=== PATIENT | female | born 1945 | race Caucasian/White ===

== ENCOUNTER 2016-02-26 17:10 | Inpatient (IN) | payer OTHER ==
[~2016-02-26] VITALS: Ht 177.8 cm; Wt 81.2 kg
[~2016-02-26 17:10] MED LIST: CRESTOR5 MG PO; PAXIL20 MG PO; PREVACID30 MG PO; QUETIAPINE FUMA50 MG PO; SINEMET 25-1001 EACH PO; TRAMADOL HCL50 MG PO
[2016-02-26 18:08] LABS: EOSINOPHIL (%) 0 % (0-5); HEMATOCRIT 33.7 % (36.0-46.0); IMMATURE GRANULOCYTE (%) 0.1 % (0.0-0.7); IMMATURE GRANULOCYTE COUNT 0.1 K/uL; LYMPHOCYTE COUNT 0.6 K/uL (1.0-2.8); MCH 30.5 PG (29.0-34.0); MCHC 34.4 G/DL (30.0-36.0); MCV 88.7 FL (83-99); MONOCYTE COUNT 0.4 K/uL (0-0.8); NEUTROPHIL (%) 90.8 % (45-76); NEUTROPHIL COUNT 9.8 K/uL (1.8-6.4); PLATELET COUNT 120 K/uL (156-360); RBC DIS.WIDTH-CV 12.2 % (11.8-14.6); RBC DIS.WIDTH-SD 38.5 % (39-53); WHITE BLOOD COUNT 10.7 K/uL (4.1-10.2)
[2016-02-26 18:23] LABS: CHLORIDE 98 mEq/L (99-109); POTASSIUM 3.8 mEq/L (3.7-5.4); SODIUM 134 mEq/L (136-147)
[2016-02-26 18:25] LABS: GLUCOSE 231 mg/dL (70-99)
[2016-02-26 18:27] LABS: ANION GAP 17 MEQ/L (2-14); TOTAL BILIRUBIN 0.3 mg/dL (0.0-1.0)
[2016-02-26 18:28] LABS: ALKALINE PHOSPHATASE 80 IU/L (3-129)
[2016-02-26 18:29] LABS: GFR ESTIMATE (CALCULATED) 31 mL/min/
[2016-02-26 18:30] LABS: UREA NITROGEN (BUN) 29 mg/dL (9-23)
[2016-02-26 18:31] LABS: TROP-I INTERPRETATION NEGATIVE; TROPONIN-I < 0.01 ng/mL (0.0-0.30)
[2016-02-26 18:33] LABS: D-DIMER ELISA 0.21 mg/L FEU (< 0.57)
[2016-02-26] MEDS ORDERED: TUDORZA PRESS400 MCG IH (20:15)
[2016-02-26] MEDS ORDERED: COQ-10100 MG PO (20:16)
[2016-02-26] MEDS ORDERED: VITAMIN B12 100MCG PO (20:16)
[2016-02-26] MEDS ORDERED: VITAMIN D22000 UNIT PO (20:16)
[2016-02-26] MEDS ORDERED: CRANBERRY500 MG PO (20:17)
[2016-02-26] MEDS ORDERED: OCUVITE TABLET1 EACH PO (20:17)
[2016-02-26] MEDS ORDERED: PREDNISONE20 MG PO (20:18)
[2016-02-26] MEDS ORDERED: VIBRAMYCIN100 MG PO (20:19)
[2016-02-26] MEDS ORDERED: TESSALON200 MG PO (20:20)
[2016-02-26] MEDS ORDERED: NORFLEX100 MG PO (20:20)
[2016-02-26] MEDS ORDERED: PROAIR HFA8.5 GM IH (20:20)
[2016-02-26] MEDS ORDERED: TYLENOL EXTRA500 MG PO (20:21)
[2016-02-26 20:26] LABS: INFLUENZA A VIRAL ANTIGEN NEGATIVE; INFLUENZA B VIRAL ANTIGEN NEGATIVE
[2016-02-26 23:42] LABS: INTER. NORMALIZED RATIO 1.2; PROTHROMBIN TIME 12.1 (9.2-11.2); PTT 59.8 (25-32)
[2016-02-27] VITALS (9 sets, daily range): BP systolic 158–200; BP diastolic 82–110
[2016-02-27 01:03] LABS: TROP-I INTERPRETATION NEGATIVE; TROPONIN-I 0.03 ng/mL (0.0-0.30)
[2016-02-27 06:42] LABS: MCH 31.1 PG (29.0-34.0); MCHC 34.8 G/DL (30.0-36.0); MCV 89.2 FL (83-99); MEAN PLAT.VOLUME 10.2 uM^3 (9.5-12.4); PLATELET COUNT 131 K/uL (156-360); RBC DIS.WIDTH-CV 12.2 % (11.8-14.6); RBC DIS.WIDTH-SD 38.8 % (39-53); WHITE BLOOD COUNT 13.1 K/uL (4.1-10.2)
[2016-02-27 06:53] LABS: TROP-I INTERPRETATION NEGATIVE; TROPONIN-I 0.02 ng/mL (0.0-0.30)
[2016-02-27 09:51] LABS: ANION GAP 11 MEQ/L (2-14); CHLORIDE 100 MEQ/L (99-109); GFR ESTIMATE (CALCULATED) 39 mL/min/; GLUCOSE 128 mg/dL (70-99); SAMPLE HEMOLYSIS CHECK 0; SAMPLE ICTERIC CHECK 0; SAMPLE LIPEMIA CHECK 0; SODIUM 134 MEQ/L (136-147); UREA NITROGEN (BUN) 24 mg/dL (9-23)
[2016-02-27 10:06] LABS: POTASSIUM 4.8 MEQ/L (3.7-5.4)
[2016-02-28 03:18] LABS: EOSINOPHIL (%) 0 % (0-5); HEMATOCRIT 30.3 % (36.0-46.0); IMMATURE GRANULOCYTE (%) 0.3 % (0.0-0.7); IMMATURE GRANULOCYTE COUNT 0.3 K/uL; LYMPHOCYTE COUNT 0.9 K/uL (1.0-2.8); MCH 31.1 PG (29.0-34.0); MCHC 34.7 G/DL (30.0-36.0); MCV 89.6 FL (83-99); MEAN PLAT.VOLUME 9.7 uM^3 (9.5-12.4); MONOCYTE (%) 7.2 % (3-12); MONOCYTE COUNT 0.7 K/uL (0-0.8); NEUTROPHIL (%) 82.8 % (45-76); NEUTROPHIL COUNT 7.7 K/uL (1.8-6.4); PLATELET COUNT 133 K/uL (156-360); RBC DIS.WIDTH-SD 38.1 % (39-53); RED BLOOD COUNT 3.38 M/uL (3.80-5.20); WHITE BLOOD COUNT 9.3 K/uL (4.1-10.2)
[2016-02-28 03:32] LABS: CHLORIDE 103 mEq/L (99-109); POTASSIUM 4.1 mEq/L (3.7-5.4); SODIUM 134 mEq/L (136-147)
[2016-02-28 03:35] LABS: GLUCOSE 152 mg/dL (70-99)
[2016-02-28 03:36] LABS: ANION GAP 11 MEQ/L (2-14); TOTAL BILIRUBIN 0.3 mg/dL (0.0-1.0)
[2016-02-28 03:38] LABS: ALKALINE PHOSPHATASE 71 IU/L (3-129); GFR ESTIMATE (CALCULATED) 43 mL/min/
[2016-02-28 03:39] LABS: UREA NITROGEN (BUN) 26 mg/dL (9-23)
[2016-02-28 07:30] VITALS: BP 177/95
[2016-02-28 12:00] VITALS: BP 180/92
[2016-02-28 15:30] VITALS: BP 168/84
[2016-02-28 19:10] VITALS: BP 165/82
[2016-02-28 22:52] VITALS: BP 170/80
[2016-02-29 04:09] VITALS: BP 150/72
[2016-02-29] MEDS ORDERED: ELIQUIS5 MG PO (09:45)
[2016-02-29 09:46] VITALS: BP 132/70
[2016-02-29] MEDS ORDERED: ASPIRIN EC325 MG PO (09:46)
[2016-02-29] MEDS ORDERED: LISINOPRIL10 MG PO (09:46)
[2016-02-29] MEDS ORDERED: PREDNISONE20 MG PO (09:47)
[2016-02-29] MEDS ORDERED: LOPRESSOR25 MG PO (09:51)
[2016-02-29 11:30] VITALS: BP 148/88
== END 2016-02-29 11:54 | disposition home or self-care (01) | DRG 871 ==
LOC: EME 17:10 → 4EAST 21:22 → EDOF 21:22 → 4EAST 02-27 00:02
PROVIDERS: Emergency Medicine; Hospitalist; Nurse Practitioner Adult Health
DX: A41.9 Sepsis, unspecified organism (principal); R65.20 Severe sepsis without septic shock; J44.0 Chronic obstructive pulmonary disease with (acute) lower respiratory infection; J18.9 Pneumonia, unspecified organism; J20.9 Acute bronchitis, unspecified; I12.9 Hypertensive chronic kidney disease with stage 1 through stage 4 chronic kidney disease, or unspecified chronic kidney disease; N18.3 Chronic kidney disease, stage 3 (moderate); N25.81 Secondary hyperparathyroidism of renal origin; D69.6 Thrombocytopenia, unspecified; I48.91 Unspecified atrial fibrillation; D64.9 Anemia, unspecified; I25.10 Atherosclerotic heart disease of native coronary artery without angina pectoris; Z95.5 Presence of coronary angioplasty implant and graft; G20 Parkinson's disease; M06.9 Rheumatoid arthritis, unspecified; F41.9 Anxiety disorder, unspecified; F32.9 Major depressive disorder, single episode, unspecified; K21.9 Gastro-esophageal reflux disease without esophagitis; H35.30 Unspecified macular degeneration; M41.9 Scoliosis, unspecified; Z87.891 Personal history of nicotine dependence
CPT/HCPCS: 71010; 71250; 74176; 80048; 80053; 83605; 83880; 84443; 84484; 85025; 85027; 85379; 85610; 85730; 87040; 87502; 93005; 94640; 94640 76; 99202; 99281; 99285; J0456; J0696; J1160; J2060; J2543; J3370; J7030; J7040; J7050; J7512

== ENCOUNTER 2016-09-07 06:56 | Inpatient (IN) | payer OTHER ==
[~2016-09-07] VITALS: Ht 179.1 cm; Wt 75.6 kg
[~2016-09-07 06:56] MED LIST changes: +ASPIRIN EC325 MG PO; +COQ-10100 MG PO; +CRANBERRY500 MG PO; +ELIQUIS5 MG PO; +IRON325 M1 PO; +LISINOPRIL10 MG PO; +LOPRESSOR25 MG PO; +NORFLEX100 MG PO; +OCUVITE TABLET1 EACH PO; +PREDNISONE20 MG PO; +PROAIR HFA8.5 GM IH; +TESSALON200 MG PO; +TUDORZA PRESS400 MCG IH; +TYLENOL EXTRA500 MG PO; +VIBRAMYCIN100 MG PO; +VITAMIN B12 100MCG PO; +VITAMIN D22000 UNIT PO
[2016-09-07 07:55] VITALS: BP 169/84
[2016-09-07 13:22] VITALS: BP 163/74
[2016-09-07 15:03] VITALS: BP 112/57
[2016-09-07 17:23] VITALS: BP 129/64
[2016-09-07 19:40] VITALS: BP 156/73
[2016-09-07 22:30] VITALS: BP 120/63
[2016-09-08 00:21] VITALS: BP 140/63
[2016-09-08 04:20] VITALS: BP 148/72
[2016-09-08 06:12] LABS: HEMATOCRIT 28.6 % (36.0-46.0); MCV 94.4 FL (83-99)
[2016-09-08 06:39] LABS: ANION GAP 6 MEQ/L (2-14); CHLORIDE 105 MEQ/L (99-109); GFR ESTIMATE (CALCULATED) 31 mL/min/; GLUCOSE 93 mg/dL (70-99); POTASSIUM 4.3 MEQ/L (3.7-5.4); SAMPLE HEMOLYSIS CHECK 0; SAMPLE ICTERIC CHECK 0; SAMPLE LIPEMIA CHECK 0; SODIUM 137 MEQ/L (136-147); UREA NITROGEN (BUN) 29 mg/dL (9-23)
[2016-09-08 08:05] VITALS: BP 138/63
[2016-09-08] MEDS ORDERED: BISAC-EVAC10 MG PR (10:34)
[2016-09-08] MEDS ORDERED: ELIQUIS2.5 MG PO (10:35)
[2016-09-08] MEDS ORDERED: OXYCODONE HCL5 MG PO (10:35)
[2016-09-08 11:53] VITALS: BP 159/97
[2016-09-08 15:47] VITALS: BP 190/93
[2016-09-08 20:18] VITALS: BP 195/87
[2016-09-09 00:30] VITALS: BP 135/65
[2016-09-09 04:30] VITALS: BP 169/80
[2016-09-09 06:43] LABS: HEMATOCRIT 29.1 % (36.0-46.0); MCV 92.7 FL (83-99)
[2016-09-09 08:00] VITALS: BP 141/67
[2016-09-09 08:34] LABS: ANION GAP 6 MEQ/L (2-14); CHLORIDE 102 MEQ/L (99-109); GFR ESTIMATE (CALCULATED) 43 mL/min/; SAMPLE HEMOLYSIS CHECK 0; SAMPLE ICTERIC CHECK 0; SAMPLE LIPEMIA CHECK 0; SODIUM 136 MEQ/L (136-147); UREA NITROGEN (BUN) 21 mg/dL (9-23)
[2016-09-09 08:39] LABS: GLUCOSE 157 mg/dL (70-99)
[2016-09-09 11:46] VITALS: BP 155/70
[2016-09-09 15:57] VITALS: BP 194/87
[2016-09-09 20:31] VITALS: BP 186/91
[2016-09-10] VITALS: BP 136/67
[2016-09-10 04:28] VITALS: BP 117/71
[2016-09-10 08:11] VITALS: BP 127/71
[2016-09-10 11:36] VITALS: BP 118/72
== END 2016-09-10 14:32 | DRG 470 ==
LOC: 3WEST 06:56 → 2SOUTH 06:56 → 3WEST 12:50 → 2SOUTH 13:41 → 3WEST 09-10 14:32
PROVIDERS: Orthopaedic Surgery; Physician Assistant
PROC: 0SRD0J9 Replacement of Left Knee Joint with Synthetic Substitute, Cemented, Open Approach (ICD-10-PCS; principal; 2016-09-07)
DX: M17.12 Unilateral primary osteoarthritis, left knee (principal); J44.9 Chronic obstructive pulmonary disease, unspecified; G20 Parkinson's disease; I48.91 Unspecified atrial fibrillation; Z79.01 Long term (current) use of anticoagulants; Z79.82 Long term (current) use of aspirin; M06.9 Rheumatoid arthritis, unspecified; K21.9 Gastro-esophageal reflux disease without esophagitis; Z87.891 Personal history of nicotine dependence; Z82.49 Family history of ischemic heart disease and other diseases of the circulatory system; Z83.3 Family history of diabetes mellitus; N18.9 Chronic kidney disease, unspecified; M21.162 Varus deformity, not elsewhere classified, left knee; R41.0 Disorientation, unspecified
CPT/HCPCS: 71010; 80048; 85014; 85018; 94640; 94640 76; 97530 GO; 99202; C1713; J0690; J1170; J1885; J2250; J7050; J7120; L1820; S0020

== ENCOUNTER 2016-09-14 04:25 | Emergency (ER) | payer OTHER ==
[~2016-09-14] VITALS: Ht 177.8 cm; Wt 83.4 kg
[~2016-09-14 04:25] MED LIST changes: +BISAC-EVAC10 MG PR; +ELIQUIS2.5 MG PO; +OXYCODONE HCL5 MG PO
[2016-09-14 07:11] VITALS: BP 142/71
== END 2016-09-14 07:12 ==
LOC: EME 04:25
DX: M96.830 Postprocedural hemorrhage of a musculoskeletal structure following a musculoskeletal system procedure (principal); Z96.652 Presence of left artificial knee joint; W01.0XXA Fall on same level from slipping, tripping and stumbling without subsequent striking against object, initial encounter; Y92.121 Bathroom in nursing home as the place of occurrence of the external cause; G20 Parkinson's disease; K21.9 Gastro-esophageal reflux disease without esophagitis; Z95.5 Presence of coronary angioplasty implant and graft; Z87.891 Personal history of nicotine dependence
CPT/HCPCS: 73564; 99281; 99284

== ENCOUNTER 2017-08-25 07:14 | Inpatient (IN) | payer OTHER ==
[~2017-08-25] VITALS: Ht 177.8 cm; Wt 79.3 kg
[~2017-08-25 07:14] MED LIST changes: +CYANOCOBALAM1000 MCG PO; -VITAMIN B12 100MCG PO; +VITAMIN D2000 UNIT PO; -VITAMIN D22000 UNIT PO
[2017-08-25 07:39] LABS: BASOPHIL (%) 0.9 % (0-1); EOSINOPHIL (%) 1.9 % (0-5); EOSINOPHIL COUNT 0.1 K/uL (0-0.3); HEMATOCRIT 34.9 % (36.0-46.0); HEMOGLOBIN 11.7 G/DL (11.9-15.5); IMMATURE GRANULOCYTE (%) 0.2 % (0.0-0.7); LYMPHOCYTE (%) 26.8 % (15-42); LYMPHOCYTE COUNT 1.3 K/uL (1.0-2.8); MCH 31.1 PG (29.0-34.0); MCHC 33.5 G/DL (30.0-36.0); MCV 92.8 FL (83-99); MONOCYTE (%) 13.3 % (3-12); MONOCYTE COUNT 0.6 K/uL (0-0.8); NEUTROPHIL (%) 56.9 % (45-76); NEUTROPHIL COUNT 2.7 K/uL (1.8-6.4); PLATELET COUNT 118 K/uL (156-360); RBC DIS.WIDTH-CV 12.4 % (11.8-14.6); RBC DIS.WIDTH-SD 42.5 % (39-53); RED BLOOD COUNT 3.76 M/uL (3.80-5.20); WHITE BLOOD COUNT 4.7 K/uL (4.1-10.2)
[2017-08-25 07:48] LABS: PTT 24.8 SEC (25-37)
[2017-08-25 08:09] LABS: TROP-I INTERPRETATION NEGATIVE; TROPONIN-I < 0.01 ng/mL (0.0-0.30)
[2017-08-25 08:14] LABS: AMYLASE 74 IU/L (1-118); CHLORIDE 104 MEQ/L (99-109); CREATININE 1.3 MG/DL (0.6-1.3); GFR ESTIMATE (CALCULATED) 43 mL/min/; GLUCOSE 84 mg/dL (70-99); LIPASE 57 U/L (1.0-51.0); POTASSIUM 4.1 MEQ/L (3.7-5.4); SERUM ETHYL ALCOHOL < 10 mg/dL; SODIUM 138 MEQ/L (136-147); UREA NITROGEN (BUN) 17 mg/dL (9-23)
[2017-08-25 08:54] LABS: APPEARANCE CLEAR ((CLEAR)); BILIRUBIN NEGATIVE; BLOOD NEGATIVE; COLOR STRAW ((YELLOW)); GLUCOSE (STRIP) NEGATIVE; KETONES NEGATIVE; LEUKOCYTES MODERATE; NITRITE NEGATIVE; PROTEIN (STRIP) NEGATIVE; SPECIFIC GRAVITY 1.019 (1.000-1.030); UROBILINOGEN 0.2 MG/DL (0.2-1.0)
[2017-08-25 09:09] LABS: BACTERIA RARE /HPF; EPITHELIAL CELLS RARE /HPF; MUCUS NONE SEEN /LPF; RED BLOOD CELLS 0-5 /HPF (0-5); UCUL ADDED? YES
[2017-08-25 09:13] LABS: AMPHETAMINE NEGATIVE (500 ng/mL); BARBITURATES NEGATIVE (200 ng/mL); BENZODIAZEPINES NEGATIVE (150 ng/mL); BUPRENORPHINE NEGATIVE (10 ng/mL); COCAINE NEGATIVE (150 ng/mL); METHADONE NEGATIVE (200 ng/mL); METHAMPHETAMINE NEGATIVE (500 ng/mL); OPIATES (MORPHINE) NEGATIVE (100 ng/mL); OXYCODONE NEGATIVE (100 ng/mL); PHENCYCLIDINE NEGATIVE (25 ng/mL); PROPOXYPHENE NEGATIVE (300 ng/mL); THC CANNABINOIDS NEGATIVE (50 ng/mL); TRICYCLIC ANTIDEPRESSANTS PRESUMPTIVE POSITIVE (300 ng/mL)
[2017-08-25] MEDS ORDERED: SINEMET 25-1001 EACH PO (09:59)
[2017-08-25 10:10] LABS: HDL CHOLESTEROL 75 MG/DL (Desirable>=50); LDL CHOLESTEROL 88 mg/dL (Desirable<100); NON-HDL CHOLESTEROL 98 mg/dL (Desirable<160); TOTAL CHOLESTEROL 173 mg/dL (Desirable<200); TRIGLYCERIDES 52 MG/DL (Normal: <150)
[2017-08-25 10:25] VITALS: BP 207/115
[2017-08-25 13:22] VITALS: BP 190/92
[2017-08-25 14:17] LABS: HEMOGLOBIN A1c (GLYCOHEMOGLOB) 5.6 % (Below 5.7)
[2017-08-25 15:10] VITALS: BP 162/94
[2017-08-25 20:33] VITALS: BP 190/92
[2017-08-26] VITALS (7 sets, daily range): BP systolic 132–182; BP diastolic 69–110
[2017-08-27 00:19] VITALS: BP 168/90
[2017-08-27 03:41] VITALS: BP 136/80
[2017-08-27 08:00] VITALS: BP 121/52
[2017-08-27 11:35] VITALS: BP 148/82
[2017-08-27] MEDS ORDERED: CRESTOR5 MG PO (12:17)
== END 2017-08-27 13:53 | disposition home or self-care (01) | DRG 64 ==
LOC: EME 07:14 → EDOF 08:26 → 5SOUTH 08:26 → ENRESERV 08:26 → 5SOUTH 10:10
PROVIDERS: Emergency Medicine; Student in an Organized Health Care Education/Training Program
DX: I63.511 Cerebral infarction due to unspecified occlusion or stenosis of right middle cerebral artery (principal); I61.8 Other nontraumatic intracerebral hemorrhage; G81.94 Hemiplegia, unspecified affecting left nondominant side; R47.81 Slurred speech; I13.10 Hypertensive heart and chronic kidney disease without heart failure, with stage 1 through stage 4 chronic kidney disease, or unspecified chronic kidney disease; N18.3 Chronic kidney disease, stage 3 (moderate); E78.5 Hyperlipidemia, unspecified; K21.9 Gastro-esophageal reflux disease without esophagitis; G20 Parkinson's disease; F32.9 Major depressive disorder, single episode, unspecified; M06.9 Rheumatoid arthritis, unspecified; I25.10 Atherosclerotic heart disease of native coronary artery without angina pectoris; F41.9 Anxiety disorder, unspecified; E66.9 Obesity, unspecified; Z96.652 Presence of left artificial knee joint; Z95.5 Presence of coronary angioplasty implant and graft; Z87.891 Personal history of nicotine dependence; Z68.25 Body mass index [BMI] 25.0-25.9, adult
CPT/HCPCS: 70450; 70496; 70498; 70551; 80047; 80048; 80061; 81003; 82150; 83036; 83690; 84484; 85025; 85610; 85730; 86850; 86900; 86901; 87086; 92610 GN; 93005; 93306; 99281; 99285; G0480; J1644